=== PATIENT | male | born 1985 | race Caucasian/White ===

== ENCOUNTER 2018-02-02 08:07 | Emergency (ER) | payer OTHER ==
[2018-02-02 08:15] VITALS: BP 131/89
[2018-02-02] MEDS ORDERED: HYDROmorphONE/DILAUDID 2 MG/ML INJ IVP ONE (08:43)
[2018-02-02] MEDS ORDERED: ONDANSETRON 4 MG/2 ML VIAL IVP ONE (08:43)
[2018-02-02] MEDS ORDERED: NS 1,000 ML IV ONE (08:43)
--- NOTE | 2018-02-02 08:52 | EDPHY ---
H & P Time Seen by Provider: 02/02/18 08:23 HPI/ROS: HPI Right flank pain. 32-year-old male on foot. He was working at the construction site across the street. About 45 min prior to arrival he developed sudden-onset in severe right flank pain similar to the pain he has had in the past with a kidney stone 8 months ago. He reports that he became diaphoretic. Nauseous. He did not vomit. Now that he is in the emergency department he feels much better and states that he has no pain and on my evaluation has no complaints. ROS: Constitutional: No fever, no chills. No weakness. Respiratory: No cough. No shortness of breath. Cardiac: No chest pain, no palpitations. Gastrointestinal: No abdominal pain, no vomiting, no diarrhea. Genitourinary: No hematuria. No dysuria or increased frequency with urination. Musculoskeletal: As above. No neck pain. No myalgias or arthralgias. Skin: No rashes. Neurological: No headache. No focal weakness or altered sensation. Past medical history: Kidney stones. Social history: Nonsmoker. No alcohol. Here by himself. Physical Exam: General Appearance: Alert, no distress. This patient is responding to questions appropriately and in full sentences. This patient appears well- hydrated and well-nourished. Eyes: Pupils equal and round no pallor or injection. No lid edema, erythema or injection. Respiratory: There are no retractions, lungs are clear to auscultation with good air movement bilaterally. Cardiovascular: Regular rate and rhythm. No murmur. Gastrointestinal: Abdomen is soft and nontender, no masses, bowel sounds normal. No focal tenderness at McBurney's point. No Bhandari sign. Testicular exam: Normal testicular lie, no masses, no clinical evidence of torsion or other pathology. Neurological: Motor sensory function is grossly intact. Cranial nerves are normal. Gait is normal. Skin: Warm and dry, no rashes. Musculoskeletal: No CVA tenderness on palpation bilaterally. Extremities are symmetrical. All joints range without pain or impingement. Psychiatric: No agitation. No depression. Database: EKG: Imaging: Procedures: Emergency department course: Vital signs reviewed and are normal. Patient asymptomatic on exam. He feels comfortable being discharged. Follow-up and return to emergency department precautions have been reviewed with him. All of his questions were answered. He was discharged in good condition. Differential Diagnosis: The differential diagnosis on this patient includes but is not limited to kidney stone. Pyelonephritis, obstructive uropathy unlikely. This represents a partial list of diagnoses considered. These considerations are based on history, physical exam, past history, reassessment and diagnostic testing. Smoking Status: Never smoked Constitutional: Initial Vital Signs Temperature (C) 36.4 C 02/02/18 08:13 Heart Rate 69 02/02/18 08:13 Respiratory Rate 18 02/02/18 08:13 Blood Pressure 131/89 H 02/02/18 08:13 O2 Sat (%) 97 02/02/18 08:13 O2 Delivery Mode Room Air Allergies/Adverse Reactions: No Known Allergies Allergy (Unverified 02/02/18 08:12) Home Medications: Medication Instructions Recorded NK [No Known Home Meds] 02/02/18 Departure - Departure Disposition: Home, Routine, Self-Care Clinical Impression: Right flank pain Condition: Good Instructions: Flank Pain (ED), Kidney Stones (ED) Additional Instructions: Read and follow provided instructions. Follow-up with your primary care physician in 1-2 days for re-evaluation. Return to the emergency department for worsening symptoms or other serious concerns. Referrals: NONE *PRIMARY CARE P,. [Primary Care Provider] - As per Instructions
== END 2018-02-02 08:58 | disposition home or self-care (01) ==
DX: R10.9 Unspecified abdominal pain (principal); Z87.442 Personal history of urinary calculi